=== PATIENT | male | born 1975 | race Hispanic/Latino ===

== ENCOUNTER → 2019-01-07 | Outpatient (CLI) | payer OTHER | END | disposition home or self-care (01) | LOC: RAH 09:08 | PROVIDERS: ATTEND Family Medicine | DX: Z13.6 Encounter for screening for cardiovascular disorders (principal); R07.9 Chest pain, unspecified | CPT/HCPCS: 75571 ==

== ENCOUNTER 2021-04-08 18:26 | Emergency (ER) | payer OTHER ==
[~2021-04-08] VITALS: Ht 182.9 cm; Wt 104.3 kg
[2021-04-08] MEDS ORDERED: ONDANSETRON 4MG INJ IVP ONE (19:00)
[2021-04-08] MEDS ORDERED: MORPHINE 2 MG SYG IVP ONE (19:00)
[2021-04-08 19:04] LABS: BASOPHILS % (AUTO) 0.5 % (0.0-5.0); EOSINOPHILS % (AUTO) 3.7 % (0.0-8.0); HEMATOCRIT 48.6 % (42-54); LYMPHOCYTES % (AUTO) 32.1 % (21.0-51.0); MEAN CORPUSCULAR HEMOGLOBIN 32.3 pg (27.0-33.0); MEAN CORPUSCULAR VOLUME 89.7 fL (79-99); MONOCYTES % (AUTO) 9.4 % (3.0-13.0); NEUTROPHILS % (AUTO) 53.9 % (40.0-77.0); PLATELET COUNT (AUTO) 190 K/uL (130-400); RED BLOOD CELL COUNT(AUTO) 5.42 MIL/uL (4.50-6.20); RED CELL DISTRIBUTION WIDTH 12.2 % (11.0-15.5); WHITE BLOOD COUNT (AUTO) 7.4 K/uL (4.8-10.8)
[2021-04-08 19:06] LABS: APPEARANCE,URINE Clear (CLEAR); BILIRUBIN,URINE Negative (NEGATIVE); COLOR,URINE Yellow (YELLOW); GLUCOSE, URINE (UA) Negative (NEGATIVE); KETONES,URINE Negative (NEGATIVE); LEUKOCYTE ESTERASE ,URINE Trace (NEGATIVE); NITRATE,URINE Negative (NEGATIVE); OCCULT BLOOD,URINE Negative (NEGATIVE); PROTEIN,URINE Negative (NEGATIVE)
[2021-04-08 19:16] LABS: BACTERIA,URINE Rare /HPF (None Seen); CREATININE 1.2 mg/dL (0.5-1.5); POTASSIUM 4.2 mmol/L (3.5-5.1); RBC,URINE 0-1 /HPF (0-1); SQUAMOUS EPITHELIAL CELL,UR Rare /HPF (0-2); WBC,URINE 0-1 /HPF (0-1)
[2021-04-08 19:25] LABS: BILIRUBIN,TOTAL 0.7 mg/dL (0.2-1.0)
[2021-04-08] MEDS ORDERED: DICY20TA2 PO (19:57)
[2021-04-08 19:59] LABS: TOTAL PROTEIN, SERUM 7.2 g/dL (6.0-8.3)
[2021-04-08] MEDS ORDERED: ONDANSETRON 4MG INJ ONE (20:10)
[2021-04-08] MEDS ORDERED: MORPHINE 2 MG SYG ONE (20:10)
[2021-04-08 20:14] VITALS: BP 119/77
== END 2021-04-08 20:26 | disposition home or self-care (01) ==
LOC: EDH 18:26
DX: R10.9 Unspecified abdominal pain (principal); Z90.49 Acquired absence of other specified parts of digestive tract; Z68.31 Body mass index [BMI] 31.0-31.9, adult
CPT/HCPCS: 36415; 74176; 80053; 81001; 83690; 84484; 85025; 86140; 96374; 96375; 99284; J2405

== ENCOUNTER 2023-01-19 07:03 | Emergency (ER) | payer OTHER ==
[~2023-01-19] VITALS: Ht 190.5 cm; Wt 102.1 kg
[~2023-01-19 07:03] MED LIST: DICY20TA2 PO
[2023-01-19] MEDS ORDERED: MORPHINE 4 MG SYG IM ONE (08:30)
[2023-01-19 09:30] VITALS: BP 137/91; PULSE 63; RESP 17; O2SAT 100
[2023-01-19 09:41] LABS: APPEARANCE,URINE CLEAR (CLEAR); BILIRUBIN,URINE NEGATIVE (NEGATIVE); COLOR,URINE YELLOW (YELLOW); GLUCOSE, URINE (UA) NEGATIVE (NEGATIVE); KETONES,URINE NEGATIVE (NEGATIVE); LEUKOCYTE ESTERASE ,URINE NEGATIVE Leu/uL (NEGATIVE); NITRATE,URINE NEGATIVE (NEGATIVE); OCCULT BLOOD,URINE NEGATIVE (NEGATIVE); PROTEIN,URINE NEGATIVE (NEGATIVE); UROBILINOGEN,URINE 0.2 mg/dL (0.2-1.0)
[2023-01-19 09:45] LABS: ADD UA MICROSCOPIC NO
[2023-01-19] MEDS ORDERED: NAPR-1180 PO (10:16)
[2023-01-19] MEDS ORDERED: FAMO-136 PO (10:16)
== END 2023-01-19 11:15 | disposition home or self-care (01) ==
LOC: EDH 07:03
DX: N50.82 Scrotal pain (principal); E66.9 Obesity, unspecified; K21.9 Gastro-esophageal reflux disease without esophagitis; J40 Bronchitis, not specified as acute or chronic; Z90.49 Acquired absence of other specified parts of digestive tract
CPT/HCPCS: 99285; 81003; 72170; 76870; 96372; J2270

== ENCOUNTER 2024-09-22 11:03 | Emergency (ER) | payer SELFPAY ==
[~2024-09-22] VITALS: Ht 170.2 cm; Wt 104.3 kg
[~2024-09-22 11:03] MED LIST changes: +FAMO-136 PO; +NAPR-1180 PO
[2024-09-22] MEDS: TRIAMCINOLONE ACETONIDE 40 MG/ML 1ML VIAL IM STA (11:32)
[2024-09-22] MEDS: ORPHENADRINE 60MG/2ML IM STA (11:32)
[2024-09-22] MEDS ORDERED: METH100054 PO (14:13)
[2024-09-22] MEDS ORDERED: KETO10TA2 PO (14:13)
[2024-09-22] MEDS ORDERED: LIDO1ADH82 TP (14:13)
--- NOTE | 2024-09-22 14:13 | ERN ---
ED Note History of Present Illness Stated Complaint: TOE NUMBNESS Chief Complaint: Toe Pain/Injury Time Seen by MD: 11:05 Time Seen by Midlevel: 11:08 Dictation: 49-year-old male with no medical history coming in with complaints of left lower back pain nonradiating and numbness to the tip of his 5th toe going on for two weeks. No trauma. Allergies: Coded Allergies: No Known Drug Allergies (Unverified Allergy, Unknown, 04/08/21) Home Meds Active Scripts Naproxen (Naprosyn) 500 Mg Tablet, 500 MG PO BIDPC for 10 Days, #20 TAB 0 Refills Prov:ELIS TOLENTINO MD 01/19/23 Famotidine (Pepcid) 20 Mg Tablet, 20 MG PO DAILYDINNER, #30 TAB 0 Refills Prov:ELIS TOLENTINO MD 01/19/23 Dicyclomine HCl (Bentyl) 20 Mg Tab, 20 MG PO QIDP, #28 TAB Prov:DEMETRIA REED 04/08/21 Past Medical History Past Medical History: Bronchitis, GERD Surgical History: Cholecystectomy Social History: Negative Review of System Dictation Constitutional: Negative for fever,chills, and weight loss Eyes: Negative for injury, pain,redness, and discharge ENT: Negative for injury,pain or swelling Cardiovascular: Negative for chest pain, palpitations, and edema Respiratory: Negative for shortness of breath, cough, and wheezing, Abdomen/GI: Negative for abdominal pain, nausea, vomiting, diarrhea, and constipation Back: Negative for injury and pain : Negative for injury, bleeding and discharge MS/Extremity: Complaining of back pain, Skin: Negative for rash, and discoloration Neuro: Negative for headache, weakness, numbness, tingling, and seizure Psych: Negative for suicide ideation, homicidal ideation, and hallucinations Review of Systems: was completed Initial Vital Sign VS Vital Signs Date Time Temp Pulse Resp B/P (MAP) Pulse Ox O2 Delivery O2 Flow Rate FiO2 09/22/24 11:05 98.2 75 20 140/86 99 Room Air Physical Exam Dictation General: awake, alert, NAD Head/Face: Normocephalic, atraumatic Eyes: PERRL, EOMI, vision at baseline ENT: oral cavity clear, TMs clear, no signs of infection Neck: Trachea midline, supple, no nuchal rigidity Cardiovascular: RRR, normal S1/S2, No MRGs, no JVD Respiratory: CTAB, no respiratory distress, No rales or wheezes Abdomen: Soft, non-tender, non-distended, normal bowel sounds, no guarding or rebound. Skin: Warm, dry, normal turgor, no rash MS/Extremity: Pulses equal, no cyanosis, neurovascular intact, FROM Neuro: COAx4, GCS 15, strength 5/5, CN 2-12 intact, normal cerebellar exam, normal gait, Psych: Normal behavior, mood, and affect normal ED Course ED Course Orders Procedure Category Date Status Time Triamcinolone Acet PHA 09/22/24 Complete 40mg/Ml 1ml (Kenalog 11:12 Orphenadrine Citrate PHA 09/22/24 Complete (Norflex) 11:12 Ketorolac PHA 09/22/24 Complete Tromethamine 15mg/Ml 11:12 Lumbar Spine 2-3vws RAD 09/22/24 Taken 11:20 Current Medications Medications (Trade) Dose Ordered Sig/Jyoti Route PRN Reason Start Time Stop Time Status Last Admin Dose Admin Ketorolac Tromethamine (toRADol) 15 mg ONCE STAT IM 09/22/24 11:12 09/22/24 11:16 DC 09/22/24 11:33 Orphenadrine Citrate (Norflex) 60 mg ONCE STAT IM 09/22/24 11:12 09/22/24 11:16 DC 09/22/24 11:32 Triamcinolone Acetonide (Kenalog 40) 40 mg ONCE STAT IM 09/22/24 11:12 09/22/24 11:17 DC 09/22/24 11:32 Vital Signs Date Time Temp Pulse Resp B/P (MAP) Pulse Ox O2 Delivery O2 Flow Rate FiO2 09/22/24 11:05 98.2 75 20 140/86 99 Room Air Medical Decision Making MDM MDM: 49-year-old male with no medical history coming in with complaints of left lower back pain nonradiating and numbness to the tip of his 5th toe going on for two weeks. No trauma. Patient denies any numbness to the peroneal area, no urinary retention, no unilateral weakness numbness or tingling. Patient states that the only numbness he feels this with the very tip of the 5th toe. X-rays preliminary interpreted by myself and ER MD shows no acute process. After pain medication muscle relaxer patient states feels better. Discussed with the patient this could be a peroneal nerve probable could be related to foot where they he is wearing, he needs to take medications as prescribed and follow up with PCP. Differential diagnosis: L-spine injury, sciatica, nerve entrapment Rationale: Tests considered and ordered secondary to shared decision making include: Previous outside records reviewed: Old ER visits. Risk of complication and/or morbidity or mortality of patient management: None Medications-Per medication reconciliation Need for hospitalization: Patient does not meet criteria for hospitalization. Need for emergency major/minor surgery: No There are no social concerns with this patient. Prescription drug management Prescriptions will include symptomatic care Patient's prior external medical records from other ER visits were reviewed by me as indicated. Prior testing and results from previous visits were reviewed. Prior tests were taken into account with medical decision making and resource utilization, independent historian/historians were used to obtain complete medical history. I independently interpreted the test that were performed, results were reviewed by me and considered findings on radiology if ordered. Medical management and examination interpretation discussions were had by me with other qualified healthcare professionals as indicated for the patient's care. DX & DISP Disposition: Discharge Departure Impression: Primary Impression: Back pain Additional Impression: Radiculopathy Condition: Stable Scripts Ketorolac Tromethamine (Ketorolac Tromethamine) 10 Mg Tablet 1 TAB PO Q6HPRN PRN for pain for 5 Days, #20 TAB 0 Refills Prov: GERA PARMAR NP 09/22/24 Methocarbamol (Methocarbamol) 1,000 Mg Tablet 1000 MG PO TID for 5 Days, #15 TAB Prov: GERA PARMAR NP 09/22/24 Lidocaine (Lidocaine) 4 % Adh..patch 1 PATCH TP DAILY for 10 Days, #10 PATCH 0 Refills Prov: GERA PARMAR NP 09/22/24 Additional Instructions: Medications as prescribed. Follow up with your PCP. Referrals: SELF,REFERRAL (PCP) Time of Disposition: 14:13 I have reviewed the case, and I agree with, Diagnosis and Plan GERA PARMAR NP Sep 22, 2024 14:13
[2024-09-22 14:27] VITALS: BP 131/76; PULSE 75; RESP 20; TEMP 98.3; O2SAT 99
--- NOTE | 2024-09-22 14:47 | HMCIMG ---
EXAM: CR Lumbar Spine, 3 View. CLINICAL HISTORY: back pain, right COMPARISON: None provided. FINDINGS: BONES: No acute fracture or aggressive appearing osseous lesion. ALIGNMENT: Alignment is within normal limits. No significant scoliosis. Straightening of the lumbar spine may reflect paraspinal muscle spasm. DISCS / DEGENERATIVE CHANGES: Small to moderate size anterior osteophytes and syndesmophytes multiple levels. 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 Moderate to severe disc disease at L4-L5 and L5-S1. Vertebral body heights are maintained with no displaced fracture. There is no listhesis. SOFT TISSUES: The soft tissues are unremarkable. IMPRESSION: 1. No acute osseous injury. 2. Moderate to severe disc disease at L4-L5 and L5-S1. /Desha
== END 2024-09-22 14:28 | disposition home or self-care (01) ==
LOC: EDH 11:03
DX: M54.50 Low back pain, unspecified (principal); M54.16 Radiculopathy, lumbar region; Z90.49 Acquired absence of other specified parts of digestive tract; Z79.899 Other long term (current) drug therapy
CPT/HCPCS: 99284; 72100; 96372 ×3; J1885; J3301; J2360